=== PATIENT | male | born 1945 | race Caucasian/White ===

== ENCOUNTER 2024-07-25 19:22 | Emergency (ER) | payer MEDICARE ==
[~2024-07-25] VITALS: Ht 175.3 cm; Wt 72.6 kg
[~2024-07-25 19:22] MED LIST: ASPI-605 PO; ATOR20TA PO; DOXA4TAB19 PO; FLUT9.9S BNOSTRILS; GLIP2.5T3 PO; LORA-259 PO; PANT40TA2 PO; SOLI5TAB2 PO; TAMS-12 PO
[2024-07-25] MEDS ORDERED: CIPR500T5 PO (21:29)
[2024-07-25 22:49] VITALS: BP 116/79; TEMP 98.1; O2SAT 98
== END 2024-07-25 23:08 ==
LOC: ER 19:24
DX: S02.2XXA Fracture of nasal bones, initial encounter for closed fracture (principal); S02.401A Maxillary fracture, unspecified side, initial encounter for closed fracture; I12.9 Hypertensive chronic kidney disease with stage 1 through stage 4 chronic kidney disease, or unspecified chronic kidney disease; E11.22 Type 2 diabetes mellitus with diabetic chronic kidney disease; N18.9 Chronic kidney disease, unspecified; Z79.82 Long term (current) use of aspirin; Z79.84 Long term (current) use of oral hypoglycemic drugs; Z88.0 Allergy status to penicillin; Z86.79 Personal history of other diseases of the circulatory system; Z87.09 Personal history of other diseases of the respiratory system; W18.39XA Other fall on same level, initial encounter; Y93.89 Activity, other specified; Y92.89 Other specified places as the place of occurrence of the external cause; Y99.8 Other external cause status
CPT/HCPCS: 70450-TC; 70486-TC; 72125-TC